=== PATIENT | female | born 1985 | race African-American/Black ===

== ENCOUNTER 2024-03-02 17:59 | Emergency (ER) | payer BC ==
[~2024-03-02] VITALS: Ht 162.6 cm; Wt 74.4 kg
[2024-03-02 18:27] VITALS: BP 119/80; TEMP 98.2
[2024-03-02] MEDS ORDERED: NA PHOS,M-B/NA PHOS,DI-BA 1 EA ENEMA RC ONE (20:25)
[2024-03-02] MEDS: NA PHOS,M-B/NA PHOS,DI-BA 1 EA ENEMA RC ONE (20:27)
[2024-03-02 20:28] VITALS: O2SAT 99
== END 2024-03-02 20:28 | disposition home or self-care (01) ==
LOC: ER 17:59
DX: K59.00 Constipation, unspecified (principal); R14.3 Flatulence